=== PATIENT | female | born 1975 | race Caucasian/White ===

== ENCOUNTER 2020-09-27 15:33 | Emergency (ER) | payer OTHER ==
[~2020-09-27 15:33] MED LIST: AMLODIPINE BESY10 MG PO; COLACE100 MG PO; IBUPROFEN800 MG PO; LIPITOR 10MG TA10 MG PO; METFORMIN HCL1000 M1 PO; NAPROXEN500 MG PO; OXYCODONE-ACET1 EAC1 PO; PEPCID AC20 MG PO; ZOFRAN4 MG PO
== END 2020-09-27 19:36 | disposition home or self-care (01) ==
LOC: FER 15:33
DX: R51.9 Headache, unspecified (principal); E11.9 Type 2 diabetes mellitus without complications; I10 Essential (primary) hypertension; F17.200 Nicotine dependence, unspecified, uncomplicated; Z79.899 Other long term (current) drug therapy; Z86.69 Personal history of other diseases of the nervous system and sense organs; Z79.891 Long term (current) use of opiate analgesic
CPT/HCPCS: 96372; J1200; J1885; J2765; J3030; J7030